=== PATIENT | female | born 1995 | race Caucasian/White ===

== ENCOUNTER → 2020-03-19 | Outpatient (CLI) | payer SELFPAY ==
[~2020-03-19] MED LIST: AUGM875T28 PO; DRIS50003 PO
== END ==
LOC: M LABSMTC 12:00
PROVIDERS: ATTEND Pediatrics
DX: Z20.828 Contact with and (suspected) exposure to other viral communicable diseases (principal)

== ENCOUNTER → 2020-03-22 | Outpatient (CLI) | payer MEDICAID | LOC: M LABSMTC 11:13 | PROVIDERS: ATTEND Orthopaedic Surgery | DX: Z20.828 Contact with and (suspected) exposure to other viral communicable diseases (principal) ==

== ENCOUNTER → 2025-01-24 | Outpatient (RCR) | LOC: M EMPSKH 01-16 13:59 | PROVIDERS: ATTEND Family Medicine | DX: Z20.828 Contact with and (suspected) exposure to other viral communicable diseases (principal) ==